=== PATIENT | male | born 1950 | race Caucasian/White ===

== ENCOUNTER 2016-02-23 10:24 | Outpatient (CLI) | payer OTHER ==
[~2016-02-23] VITALS: Ht 172.7 cm; Wt 71.4 kg
[~2016-02-23 10:24] MED LIST: LINA5TAB PO
[2016-02-23 10:47] VITALS: BP 133/77; PULSE 70; RESP 18; Ht 172.7 cm; Wt 71.4 kg
--- NOTE | 2016-02-23 12:13 | PN ---
Date/Time of Note Date/Time of Note DATE: 02/23/16 TIME: 12:02 Assessment/Plan Assessment/Plan Assessment/Plan [facility] Outpatient Progress Note Date of Service: 02/23/2016 Today's assessment and plan: A very-pleasant 65-year-old gentleman with past medical history significant for diabetes mellitus, with multifocal hepatocellular carcinoma involving segments 5-8 with possible lesions in segment 4B and 3 as shown on diagnostic laparoscopy with intraop US and liver biopsy on 10/14/15. S/p TACE 11/10/15 to right lobe of the liver. Follow up scan shows good response to treatment. May need repeat TACE to left lobe of liver due to likely multifocal nature of the disease. With above assessment, I've recommended the followin. TACE to L lobe of liver 2. Multidisciplinary discussion 3. If no obvious lesion in left lateral segments, to consider right portal vein embolization in preparation for a possible extended right hepatectomy 4. AFP check Thank you very much for having me involved in the care of this very pleasant gentleman and his wonderful family. I will continue to follow him along with you as an outpatient and will be available to answer any questions at area code [phone]. TOTAL VISIT TIME: 30 minutes of which more than half was spent in [id number] discussion with the patient, discussions with his , as well as coordination of care between multiple physicians and providers. Disclaimer: Inadvertent spelling and grammatical errors are likely due to EHR/ dictation software use and do not reflect on the quality of delivered patient care. Also, please note that the electronic time recorded on this node does not necessarily reflect the actual time of the visit. Updated Clinical Summary: A very-pleasant 65-year-old gentleman with past medical history significant for diabetes mellitus, with multifocal hepatocellular carcinoma involving segments 5 -8 with possible lesions in segment 4B and 3 as shown on diagnostic laparoscopy with intraop US and liver biopsy on 10/14/15. S/p TACE 11/10/15 to right lobe of the liver. Follow up scan shows good response to treatment. Subjective: No major events or complaints; no abd sig pain; no n/v/d; no sob or cp; + flatus ; + BM and normal; + activity. Reports improvement in left-sided abdominal pain. Objective: Vitals: See below Exam: GENERAL: On exam, the patient was sitting up in a chair and appeared to be comfortable and in no acute distress. ABDOMEN: Soft, nontender and nondistended. Incisions c/d/i w/o obvious e/e/d/h. There are no peritoneal signs or guarding. SKIN: Skin appears to be pink and feels warm to touch. NEUROLOGIC: Patient is awake, alert, and follows commands appropriately. Exam/Review of Systems Vital Signs Vitals Vital Signs Date Time Temp Pulse Resp B/P Pulse Ox O2 Delivery O2 Flow Rate FiO2 02/23/16 10:47 98.0 70 18 133/77 96 Room Air CARMELA BORREGO M.D. Feb 23, 2016 12:13
== END 2016-02-23 16:52 | disposition home or self-care (01) ==
LOC: HPC 10:24
PROVIDERS: ATTEND Transplant Surgery
DX: C22.0 Liver cell carcinoma (principal); E11.9 Type 2 diabetes mellitus without complications
CPT/HCPCS: G0463

== ENCOUNTER 2016-03-15 09:59 | Outpatient (CLI) | payer OTHER ==
[~2016-03-15] VITALS: Ht 172.7 cm; Wt 74.5 kg
[2016-03-15 10:28] VITALS: BP 133/77; PULSE 75; RESP 18; Ht 172.7 cm; Wt 74.5 kg
--- NOTE | 2016-03-15 16:10 | PN ---
Date/Time of Note Date/Time of Note DATE: 03/15/16 TIME: 15:20 Assessment/Plan Assessment/Plan Assessment/Plan [facility] Outpatient Progress Note Date of Service: 03/15/2016 Today's assessment and plan: A very-pleasant 65-year-old gentleman with past medical history significant for diabetes mellitus, with multifocal hepatocellular carcinoma involving segments 5-8 with possible lesions in segment 4B and 3 as shown on diagnostic laparoscopy with intraop US and liver biopsy on 10/14/15. S/p TACE 11/10/15 to right lobe of the liver. Follow up scan shows good response to treatment. Scheduled for repeat TACE to left lobe of liver due to likely multifocal nature of the disease and possible consideration for right portal vein embolization to grow the left lobe depending on findings on L lobe TACE procedure. Patient and family had further questions regarding above plan and for this reason this visit was conducted. I insisted that patient attends the visit with a family member since in my opinion, patient may have difficulty remembering the details of the discussion. His was present during the visit and I answered all of their questions to the best of my ability. Patient and appeared to understand and agreed with the plans. With above assessment, I've recommended the followin. TACE to L lobe of liver 2. Multidisciplinary discussion 3. If no obvious lesion in left lateral segments, to consider right portal vein embolization in preparation for a possible extended right hepatectomy 4. AFP check Thank you very much for having me involved in the care of this very pleasant gentleman and his wonderful family. I will continue to follow him along with you as an outpatient and will be available to answer any questions at area code [phone]. TOTAL VISIT TIME: 30 minutes of which more than half was spent in [id number] discussion with the patient, discussions with his , as well as coordination of care between multiple physicians and providers. Disclaimer: Inadvertent spelling and grammatical errors are likely due to EHR/ dictation software use and do not reflect on the quality of delivered patient care. Also, please note that the electronic time recorded on this node does not necessarily reflect the actual time of the visit. Updated Clinical Summary: A very-pleasant 65-year-old gentleman with past medical history significant for diabetes mellitus, with multifocal hepatocellular carcinoma involving segments 5 -8 with possible lesions in segment 4B and 3 as shown on diagnostic laparoscopy with intraop US and liver biopsy on 10/14/15. S/p TACE 11/10/15 to right lobe of the liver. Follow up scan shows good response to treatment. Comorbidities: 1. Multifocal bilateral liver lesions in the setting of early cirrhosis; s/p laparoscopic exploration with intraoperative ultrasound of liver and laparoscopic ultrasound-guided core needle liver biopsy of segment 5 lesion as well as segment 4B normal cirrhotic-appearing liver 2. Diabetes mellitus Subjective: No major events or complaints; no abd sig pain; no n/v/d; no sob or cp; + flatus ; + BM and normal; + activity. Reports ongoing issues with mild left-sided abdominal pain. Objective: Vitals: See below Exam: GENERAL: On exam, the patient was sitting up in a chair and appeared to be comfortable and in no acute distress. ABDOMEN: Soft, nontender and nondistended. Incisions c/d/i w/o obvious e/e/d/h. There are no peritoneal signs or guarding. SKIN: Skin appears to be pink and feels warm to touch. NEUROLOGIC: Patient is awake, alert, and follows commands appropriately. Exam/Review of Systems Vital Signs Vitals Vital Signs Date Time Temp Pulse Resp B/P Pulse Ox O2 Delivery O2 Flow Rate FiO2 03/15/16 10:28 97.7 75 18 133/77 96 Room Air CARMELA BORREGO M.D. Mar 15, 2016 15:31
== END 2016-03-15 16:51 | disposition home or self-care (01) ==
LOC: HPC 09:59
PROVIDERS: ATTEND Transplant Surgery
DX: C22.0 Liver cell carcinoma (principal); E11.9 Type 2 diabetes mellitus without complications; K74.60 Unspecified cirrhosis of liver
CPT/HCPCS: G0463

== ENCOUNTER 2016-06-28 11:27 | Day surgery (SDC) | payer OTHER ==
[~2016-06-28] VITALS: Ht 175.3 cm; Wt 72.4 kg
[2016-06-28] MEDS ORDERED: janumet (12:19)
[2016-06-28] MEDS ORDERED: bentyl (12:19)
[2016-06-28] MEDS ORDERED: pantoprazole (12:19)
[2016-06-28] MEDS ORDERED: novolog (12:19)
[2016-06-28 12:21] VITALS: Ht 175.3 cm; Wt 72.4 kg
[2016-06-28] MEDS ORDERED: LIDOCAINE 2% (SDV) 5 ML INJ ONE (12:53)
[2016-06-28] MEDS ORDERED: MIDAZOLAM 1 MG/ML 2 ML INJ ONE (12:53)
[2016-06-28] MEDS ORDERED: PROPOFOL 40 ML ONE (12:53)
[2016-06-28 12:56] VITALS: BP 115/75; PULSE 69; RESP 18
--- NOTE | 2016-06-28 13:29 | GILP ---
DATE OF PROCEDURE: NAME OF PROCEDURE: Esophagogastroduodenoscopy. SURGEON: Reese Neely MD PREOPERATIVE DIAGNOSIS: Abdominal pain. POSTOPERATIVE DIAGNOSES: 1. 2+ esophageal varices at the lower end. 2. Gastritis with erosions. INDICATION FOR THE PROCEDURE: Mr. Sam Jeffery is a 66-year-old male patient who had upper abdomina l pain, not responding to therapy. The patient had history of hepatoma. The patient was scheduled for endoscopic examination for further evaluation. The procedure and possible complications are well explained to the patient, he understood and consen sandra to the procedure. DESCRIPTION OF PROCEDURE: Under the influence of anesthesia, the gastroscope was carefully introduc ed into the esophagus and under direct vision, it was advanced to the stomach and through the pyloru s into the duodenal bulb and descending duodenum. FINDINGS: ESOPHAGUS: The patient had 2+ esophageal varices in the lower end of the esophagus. STOMACH: He had gastritis with erosions. DUODENUM: Normal. He tolerated the procedure very well and there was no complication from the procedure. At the end o f the procedure, he was awake with stable vital signs and he was discharged home to the care of his family. IMPRESSION: 1. 2+ esophageal varices at the lower end of the esophagus. 2. Gastritis with erosions. PLAN: 1. Pantoprazole 40 mg p.o. q.a.m. 2. Bentyl 10 mg p.o. t.i.d. p.r.n. for pain. Dictated By: REESE REID/ISRRAEL Conf#: [id number] DID#: [id number]
[2016-06-28 13:32] VITALS: BP 115/78; PULSE 63; RESP 20
--- NOTE | 2016-06-29 07:29 | CONS ---
DATE OF ADMISSION: 06/28/2016 DATE OF CONSULTATION: TYPE OF CONSULTATION: Preoperative Gastroenterology Dear Dr. Vazquez, I thank you very much for this kind referral. HISTORY OF PRESENT ILLNESS: Mr. Sam Jeffery is a 66-year-old male patient who has been referred to me for further evaluation of upper abdominal pain, not responding to therapy with pantoprazole and Bentyl. There is no past history of peptic ulcer disease. He is not taking any nonsteroidal anti-i nflammatory agents. His appetite has been good and there is no history of significant weight loss. The patient had an abdominal CT scan done and he was noted to have hepatoma and gallstones. He is being followed up by Dr. Hinojosa for the hepatoma. He does not have any right upper quadrant pain, f ever, chills, or jaundice. The patient had a colonoscopy 1 year ago and he was noted to have divert iculosis of the colon. There is no history of colon neoplasm. He is not hypertensive. He has diab etes. There is no history of heart disease or lung problem. There is no history of kidney disease. SOCIAL HISTORY: He is a nonsmoker. He used to drink alcohol, now he has quit drinking. FAMILY HISTORY: There is no family history of gastrointestinal tract neoplasm. ALLERGIES: THERE IS NO HISTORY OF SIGNIFICANT DRUG ALLERGY. MEDICATIONS: 1. Janumet. 2. Novolin insulin. 3. Pantoprazole. 4. Bentyl. PHYSICAL EXAMINATION: GENERAL: He is 5 feet 9 inches tall and he weighs 160 pounds. HEART: Examination of the heart reveals normal first and second heart sounds. LUNGS: Clear. ABDOMEN: Soft without any distention. Liver and spleen are not palpable. There are no masses. Th ere is no focal tenderness. Normal bowel sounds are heard. CENTRAL NERVOUS SYSTEM: Does not reveal any focal neurological deficit. IMPRESSION: 1. Upper abdominal pain, not responding to therapy with pantoprazole and Bentyl. 2. Hepatoma. 3. He is being followed by Dr. Hinojosa. 4. Gallstones. 5. The patient seemed to be asymptomatic from gallstones. 6. The patient had a colonoscopy 1 [address] done by Dr. Camp and he was noted to have diverticulo sis of the colon. 7. Diabetes mellitus. PLAN: 1. Continue pantoprazole. 2. Bentyl p.r.n. for abdominal pain. 3. Endoscopy for further evaluation. The patient had abdominal CT scan and he was noted to have gallstones and hepatoma. There was no ot her abnormality detected. Because of the multiple medical problems, he needs monitored anesthesia care for the procedure. The procedure and possible complications were well explained to the patient. He understands and con sents to the procedure. I thank you once again. With warmest personal regards, Dictated By: ANGY REID/ISRRAEL Conf#: [id number] DID#: [id number] CC: ANGY DOHERTY MD;*EndCC*
== END 2016-06-28 16:18 | disposition home or self-care (01) ==
LOC: GIL 11:27
PROVIDERS: ATTEND Internal Medicine Gastroenterology
DX: I85.00 Esophageal varices without bleeding (principal); K29.70 Gastritis, unspecified, without bleeding; K80.20 Calculus of gallbladder without cholecystitis without obstruction; E11.9 Type 2 diabetes mellitus without complications; Z79.4 Long term (current) use of insulin
CPT/HCPCS: 43235; J2250; Z7610

== ENCOUNTER 2016-07-12 21:36 | Emergency (ER) | payer OTHER ==
[~2016-07-12] VITALS: Ht 177.8 cm; Wt 75.0 kg
[~2016-07-12 21:36] MED LIST changes: -LINA5TAB PO; +bentyl; +janumet; +novolog; +pantoprazole
[2016-07-12 21:41] VITALS: Ht 177.8 cm; Wt 75.0 kg
[2016-07-12] MEDS ORDERED: ONDANSETRON 4 MG INJ IV STA ×2 (22:01→23:26)
[2016-07-12] MEDS ORDERED: morphine 4 MG/ML VIAL IV STA ×2 (22:01→23:26)
[2016-07-12] MEDS ORDERED: SOD CHLORIDE 0.9% 500 ML IV STA (22:01)
--- NOTE | 2016-07-12 22:05 | ERD ---
ER Documentation Chief Complaint Date/Time DATE: 07/12/16 TIME: 22:02 Chief Complaint left sided abd pain radaitibg to back, hx- CA liver taking chemotherapy HPI 66-year-old male history of hepatocellular carcinoma in the past with chemotherapy and embolization treatment who presents with 1 year of left upper quadrant abdominal pain. The patient states that the pain has been persistent over the past year and states that "no one has been looking at his spleen "he denies any hematemesis or melena, no fevers or chills. He recently had endoscopy that showed esophageal varices and gastritis but no evidence of acute process. Patient denies any chest pain or pleuritic pain, no shortness of breath. It is unclear what triggered his visit this evening other than persistence of pain. ROS All systems reviewed and are negative except as per history of present illness. Medications Home Meds Active Scripts Docusate Sodium* (Colace*) 100 Mg Capsule, 100 MG PO TID Y for CONSTIPATION, # 30 CAP Prov:GEORGES NOVOA MD 07/13/16 Ondansetron (Ondansetron Odt) 4 Mg Tab.rapdis, 4 MG PO Q6H Y for NAUSEA AND/OR VOMITING, #30 TAB Prov:GEORGES NOVOA MD 07/13/16 Hydrocodone/Acetaminophen ([place] 10-325 Tablet) 1 Each Tablet, 1 TAB PO Q6H Y for PAIN, #7 TAB Prov:GEORGES NOVOA MD 07/13/16 Reported Medications [Salvestrol] No Conflict Check, 2 CAP PO TID 07/13/16 Pantoprazole* (Pantoprazole*) 40 Mg Tablet.dr, 40 MG PO BID, TAB 07/13/16 Dicyclomine Hcl* (Bentyl*) 10 Mg Capsule, 20 MG PO TID, CAP 07/13/16 Insulin Aspart* (Novolog Insulin Pen*) 100 Unit/Ml Soln, 14 SC WITH LUNCH, EA 07/13/16 Sitagliptin Phos/Metformin HCl (Janumet 50-500 mg Tablet) 1 Each Tablet, 1 EACH PO QAM AND PM, TAB 07/13/16 Discontinued Reported Medications [pantoprazole] No Conflict Check 06/28/16 [bentyl] No Conflict Check 06/28/16 [novolog] No Conflict Check 06/28/16 [janumet] No Conflict Check 06/28/16 Allergies Allergies: Coded Allergies: No Known Drug Allergies (Unverified Allergy, Unknown, 07/12/16) PMhx/Soc History of Surgery: Yes Anesthesia Reaction: No Hx Neurological Disorder: No Hx Respiratory Disorders: No Hx Cardiac Disorders: No Hx Psychiatric Problems: No Hx Miscellaneous Medical Probl: No (biopsy, liver cancer, diabetes) Hx Alcohol Use: No Hx Substance Use: No Hx Tobacco Use: No Smoking Status: Never smoker FmHx Family History: No diabetes Physical Exam Vitals Vital Signs Date Time Temp Pulse Resp B/P Pulse Ox O2 Delivery O2 Flow Rate FiO2 07/13/16 00:07 64 16 144/86 100 Room Air 07/12/16 21:41 98.7 65 20 145/73 99 Physical Exam General: Well developed, well nourished, no acute distress Head: Normocephalic, atraumatic. Eyes: Pupils equally reactive, EOM intact ENT: Moist mucous membranes Neck: Supple, no lymphadenopathy Respiratory: Lungs clear bilaterally, no distress Cardiovascular: RRR, no murmurs, rubs, or gallops Abdominal: Soft, non-tender, non-distended, no peritoneal signs, negative Ceja sign, no tenderness to McBurney's point, no pulsatile mass : Deferred MSK: No edema, no unilateral swelling, 5/5 strength Neurologic: Alert and oriented, moving all extremities, normal speech, no focal weakness, no cerebellar signs Skin: No rash Psych: Normal mood Result Diagram: 07/12/16 2212 07/12/16 2212 Results 24 hrs Laboratory Tests Test 07/12/16 22:12 White Blood Count 4.610^3/ul Red Blood Count 4.5010^6/ul Hemoglobin 13.7g/dl Hematocrit 40.6% Mean Corpuscular Volume 90.2fl Mean Corpuscular Hemoglobin 30.4pg Mean Corpuscular Hemoglobin Concent 33.7g/dl Red Cell Distribution Width 13.4% Platelet Count 8610^3/UL Mean Platelet Volume 11.7fl Neutrophils % 77.9% Lymphocytes % 13.7% Monocytes % 5.7% Eosinophils % 1.1% Basophils % 0.9% Nucleated Red Blood Cells % 0.0/100WBC Neutrophils # 3.610^3/ul Lymphocytes # 0.610^3/ul Monocytes # 0.310^3/ul Eosinophils # 0.110^3/ul Basophils # 0.010^3/ul Nucleated Red Blood Cells # 0.010^3/ul Prothrombin Time 12.7Sec Prothrombin Time Ratio 1.0 INR International Normalized Ratio 0.95 Activated Partial Thromboplast Time 29.8Sec Sodium Level 134mmol/L Potassium Level 3.3mmol/L Chloride Level 104mmol/L Carbon Dioxide Level 23mmol/L Anion Gap 10 Blood Urea Nitrogen 15mg/dl Creatinine 0.63mg/dl Glucose Level 225mg/dl Calcium Level 9.9mg/dl Total Bilirubin 0.5mg/dl Direct Bilirubin 0.00mg/dl Indirect Bilirubin 0.5mg/dl Aspartate Amino Transf (AST/SGOT) 49IU/L Alanine Aminotransferase (ALT/SGPT) 58IU/L Alkaline Phosphatase 251IU/L Total Protein 8.3g/dl Albumin 4.6g/dl Globulin 3.70g/dl Albumin/Globulin Ratio 1.24 Lipase 51U/L Current Medications Medications (Trade) Dose Ordered Sig/Gualberto Route PRN Reason Start Time Stop Time Status Last Admin Dose Admin Sodium Chloride (NS) 500 ml @ 500 mls/hr Q1H STAT IV 07/12/16 22:01 07/12/16 23:00 DC 07/12/16 22:10 Morphine Sulfate (morphine) 4 mg ONCE STAT IV 07/12/16 22:01 07/12/16 22:02 DC 07/12/16 22:12 Ondansetron HCl (Zofran Inj) 4 mg ONCE STAT IV 07/12/16 22:01 07/12/16 22:02 DC 07/12/16 22:12 Morphine Sulfate (morphine) 4 mg ONCE STAT IV 07/12/16 23:26 07/12/16 23:27 DC 07/12/16 23:35 Ondansetron HCl (Zofran Inj) 4 mg ONCE STAT IV 07/12/16 23:26 07/12/16 23:27 DC 07/12/16 23:35 Procedures/MDM EKG, MONITORS, & DIAGNOSTIC IMAGING: CT abdomen and pelvis. IMPRESSION: 1. Ill-defined ovoid density right lobe of the liver not well visualized on this noncontrast examination corresponding to the previously identified hepatic mass which appears to have increased in volume in the interval. 2. Cholelithiasis. 3. Left renal cyst. 4. Solitary ascending colon diverticula without surrounding inflammatory changes. 5. Mild retained stool without obstruction. 6. No CT evidence for appendicitis. 7. Mild splenomegaly. 8. Minimal right inguinal hernia containing fat. 9. Vascular calcifications. LAB INTERPRETATION: No significant leukocytosis or hepatobiliary obstruction MEDICAL DECISION MAKING: The patient has 1 year of left upper quadrant abdominal pain in the setting of hepatocellular carcinoma. Unclear significance of the abdominal pain. This does not appear to be consistent with upper GI bleed. No signs or symptoms concerning for acute aortic process given the chronicity of these symptoms. Low concern for kidney stone. Could consider metastatic spread. It appears the patient is seeking an answer for the pain for 1 year. I tried to explain to the patient that we may not have an answer in the emergency department given the chronicity of the symptoms. However, I will rule out acute process with laboratory testing and CT imaging of the abdomen and pelvis. I can initiate the patient on stronger pain medication refer him to his primary care provider and oncologic surgeon Dr. Hinojosa. Family member assisting interpretation. ER COURSE: Patient given IV fluids and morphine. The patient required repeat dosing. Serial abdominal exam is improved. Diagnostic imaging is unrevealing. The patient has been referred to primary care physician for further management of his chronic pain. I kept the patient and/or family informed of laboratory and diagnostic imaging results throughout the emergency room course. DISPOSITION PLAN: We discussed follow up with the patient's primary care doctor within 24 to 48 hours as needed. We also discussed return to the emergency room for worsening symptoms or worsening condition. Outpatient referral: [None required] Discharge Medications: [place], Zofran, Colace We discussed the use of narcotics including avoidance of operating heavy machinery and driving as well as its addictive properties. Departure Diagnosis: Primary Impression: Abdominal pain Abdominal location: left upper quadrant Qualified Code: R10.12 - Left upper quadrant pain Additional Impression: History of hepatocellular carcinoma Condition: Stable GEORGES NOVOA MD July 12, 2016 22:05
[2016-07-12 23:04] LABS: ADD SCAN DIFF NO
[2016-07-12 23:09] LABS: ABNORMAL IP MESSAGE 1; BASOPHILS % 0.9 % (0.0-2.0); EOSINOPHILS # 0.1 10^3/ul (0.0-0.5); EOSINOPHILS % 1.1 % (0.0-7.0); HEMATOCRIT 40.6 % (42.0-52.0); HEMOGLOBIN 13.7 g/dl (14.0-18.0); LYMPHOCYTES # 0.6 10^3/ul (0.8-2.9); LYMPHOCYTES % 13.7 % (15.0-51.0); MEAN CORPUSCULAR HEMOGLOBIN 30.4 pg (29.0-33.0); MEAN CORPUSCULAR HGB CONC 33.7 g/dl (32.0-37.0); MEAN CORPUSCULAR VOLUME 90.2 fl (82.0-101.0); MEAN PLATELET VOLUME 11.7 fl (7.4-10.4); MONOCYTE # 0.3 10^3/ul (0.3-0.9); MONOCYTES % 5.7 % (0.0-11.0); NEUTROPHIL # 3.6 10^3/ul (1.6-7.5); NEUTROPHILS % 77.9 % (39.0-77.0); PLATELET COUNT 86 10^3/UL (140-415); RED CELL DISTRIBUTION WIDTH 13.4 % (11.5-14.5); WHITE BLOOD COUNT 4.6 10^3/ul (4.8-10.8)
--- NOTE | 2016-07-12 23:21 | RADRPT ---
PROCEDURE: CT ABDOMEN/PELVIS WITHOUT CONTRAST CLINICAL INDICATION: 66-year-old male with abdominal pain. The patient has a history of hepatic c ancer. TECHNIQUE: The study was performed utilizing a GE LightSpeed VCT 64-slice CT scanner. Direct axia l sections were obtained through the abdomen and pelvis without the use of intravenous contrast mate rial. Sagittal and coronal reformations were obtained. One or more of the following dose reduction t echniques were utilized: automated exposure control, adjustment of the mA and/or kV according to pat ient's size or use of iterative reconstruction technique. [facility] CTD/vol = 12.8 mGy; Total Exam DLP = 773.9 mGy-cm. COMPARISON: CT abdomen/pelvis August 05, 2015. FINDINGS: The lung bases are unremarkable. There is no evidence for significant pleural effusion. The liver has a normal size. There is an ill-defined ovoid heterogeneous density within the right lobe of the liver measuring approximately 6.6 x 5.4 cm corresponding to the previously identified mass on the c ontrast examination but not well visualized on the current study. This appears to have increased in volume in the interval. No intrahepatic nor extrahepatic biliary ductal dilatation is seen. The gal lbladder contains multiple the calcified gallstones but without significant wall thickening or peric holecystic fluid. The pancreas is without areas of abnormal attenuation. The spleen is enlarged hav ing a maximal length of 14.7 cm but without abnormal density. The adrenal glands are unremarkable. T he right kidney is without abnormal density, calculi or obstruction. There is a left lower pole german al cyst measuring approximately 3.3 x 3.5 x 3.5 cm. No hydroureteronephrosis nor nephroureterolithiasis is evident. The urinary bladder contains urine. There is mild retained stool within the colon without obstruction. There is a small solitary deep diverticula within the mesente jose border of the distal ascending colon without surrounding inflammatory changes. The appendix is d iminutive and is without abnormal thickening or surrounding inflammatory reaction. There is no signi ficant free fluid. The prostate is not enlarged. There is a minimal right inguinal hernia containin g fat. The aortoiliac vessels are mildly calcified without aneurysmal dilatation. The osseous struct ures are intact. IMPRESSION: 1. Ill-defined ovoid density right lobe of the liver not well visualized on this noncontrast examin ation corresponding to the previously identified hepatic mass which appears to have increased in vol ume in the interval. 2. Cholelithiasis. 3. Left renal cyst. 4. Solitary ascending colon diverticula without surrounding inflammatory changes. 5. Mild retained stool without obstruction. 6. No CT evidence for appendicitis. 7. Mild splenomegaly. 8. Minimal right inguinal hernia containing fat. 9. Vascular calcifications. .Valente Russo MD, Date Time Electronically viewed and signed by .Valente Russo MD, on 07/12/2016 23:20 .M/
[2016-07-12 23:28] LABS: INR 0.95; PROTIME 12.7 Sec (12.2-14.2)
[2016-07-12 23:29] LABS: PARTIAL THROMBOPLASTIN TIME 29.8 Sec (25.0-35.0)
[2016-07-12 23:32] LABS: ALBUMIN 4.6 g/dl (3.3-4.9); ALBUMIN/GLOBULIN RATIO 1.24; BILIRUBIN,INDIRECT 0.5 mg/dl (0-1.1); BILIRUBIN,TOTAL 0.5 mg/dl (0.2-1.3); CALCIUM 9.9 mg/dl (8.4-10.2); CREATININE 0.63 mg/dl (0.61-1.24); POTASSIUM 3.3 mmol/L (3.5-5.1); TOTAL PROTEIN 8.3 g/dl (6.1-8.1)
[2016-07-13] MEDS ORDERED: PANT40TA4 PO
[2016-07-13] MEDS ORDERED: [UNRECOGNIZED DRUG - OTHER] PO
[2016-07-13] MEDS ORDERED: SITA1TAB PO
[2016-07-13] MEDS ORDERED: DICY10CA60 PO
[2016-07-13] MEDS ORDERED: NOVO3I SC
[2016-07-13 00:07] VITALS: BP 144/86; PULSE 64; RESP 16
[2016-07-13] MEDS ORDERED: DOCU-144 PO (00:25)
[2016-07-13] MEDS ORDERED: ONDA4TAB14 PO (00:25)
[2016-07-13] MEDS ORDERED: HYDR-902 PO (00:25)
== END 2016-07-13 00:32 | disposition home or self-care (01) ==
LOC: E/R 21:36
DX: R10.12 Left upper quadrant pain (principal); E11.9 Type 2 diabetes mellitus without complications; Z79.4 Long term (current) use of insulin; Z85.05 Personal history of malignant neoplasm of liver
CPT/HCPCS: 36415; 74176; 80053; 83690; 85025; 85610; 85730; 96374; 96375; 96376; J2270; J2405; J7040; Z7502

== ENCOUNTER 2016-07-26 11:27 | Outpatient (CLI) | payer OTHER ==
[~2016-07-26] VITALS: Ht 172.7 cm; Wt 79.5 kg
[2016-07-26 11:27] VITALS: BP 119/71; PULSE 80; RESP 18; Ht 172.7 cm; Wt 79.5 kg
[~2016-07-26 11:27] MED LIST changes: +DICY10CA60 PO; +DOCU-144 PO; +HYDR-902 PO; +NOVO3I SC; +ONDA4TAB14 PO; +PANT40TA4 PO; +SITA1TAB PO; +[UNRECOGNIZED DRUG - OTHER] PO; -bentyl; -janumet; -novolog; -pantoprazole
--- NOTE | 2016-07-26 16:45 | PN ---
Date/Time of Note Date/Time of Note DATE: 07/26/16 TIME: 16:17 Assessment/Plan Assessment/Plan Assessment/Plan [facility] Outpatient Progress Note Date of Service: 07/26/2016 Today's assessment and plan: Overall has remained stable with HCC in segment V , s/p 2 prior TACE procedures Oct 2015 and Mar 2016, with most recent liver- dedicated CT abd/pelvis 06/05/16 showing stable in size similar enhancing lesion in seg 5. No new lesions in approximately 9 months form time of his operation. This indicates adequate local control of disease in segment V, and likely regenerative nodules in the rest of the liver as opposed to multifocal HCC as originally thought. Patient may become eligible for another attempt at liver resection if remains stable for another 3 months. Repeat TACE is advised. Explained above to patient and answered all of his questions. He seemed to understand and agreed with the plans. With above assessment, I've recommended the followin. Repeat TACE to segment 5 lesion 2. Multidisciplinary discussion 3. If no obvious lesion in the rest of the liver on the repeat TACE and on f/u CT in 2-3 months, to consider repeat surgical attempt at resection +/- right portal vein embolization in preparation for a possible extended right hepatectomy if needed 4. Repeat AFP levels 5. F/u on transplant evaluation outcomes/status Thank you very much for having me involved in the care of this very pleasant gentleman and his wonderful family. I will continue to follow him along with you as an outpatient and will be available to answer any questions at area code [phone]. TOTAL VISIT TIME: 30 minutes of which more than half was spent in [id number] discussion with the patient, discussions with his , as well as coordination of care between multiple physicians and providers. Disclaimer: Inadvertent spelling and grammatical errors are likely due to EHR/ dictation software use and do not reflect on the quality of delivered patient care. Also, please note that the electronic time recorded on this node does not necessarily reflect the actual time of the visit. Updated Clinical Summary: A very-pleasant 66-year-old gentleman with past medical history significant for diabetes mellitus, with multifocal hepatocellular carcinoma involving segments 5 -8 with possible lesions in segment 4B and 3 as shown on diagnostic laparoscopy with intraop US and liver biopsy on 10/14/15. S/p TACE 11/10/15 to right lobe of the liver. Follow up scan showed good response to treatment. S/p repeat TACE 03/22 ([facility]). F/u liver-dedicated CT 06/05/16 showed segment V neoplasm with persistent tumoral enhancement, unchanged in size (3.8 cm). Comorbidities: 1. Multifocal bilateral liver lesions in the setting of early cirrhosis; s/p laparoscopic exploration with intraoperative ultrasound of liver and laparoscopic ultrasound-guided core needle liver biopsy of segment 5 lesion as well as segment 4B normal cirrhotic-appearing liver 2. Diabetes mellitus 3. S/p TACE 11/10/15 to right lobe of the liver. Follow up scan showed good response to treatment. S/p repeat TACE 03/22/16 ([facility]). F/u liver-dedicated CT 06/05/16 showed segment V neoplasm with persistent tumoral enhancement, unchanged in size (3.8 cm). Subjective: No major events or complaints; no abd sig pain; no n/v/d; no sob or cp; + flatus ; + BM and normal; + activity. Objective: Vitals: See below Exam: GENERAL: On exam, the patient was sitting up in a chair and appeared to be comfortable and in no acute distress. ABDOMEN: Soft, nontender and nondistended. Incisions c/d/i w/o obvious e/e/d/h. There are no peritoneal signs or guarding. SKIN: Skin appears to be pink and feels warm to touch. NEUROLOGIC: Patient is awake, alert, and follows commands appropriately. Exam/Review of Systems Vital Signs Vitals Vital Signs Date Time Temp Pulse Resp B/P Pulse Ox O2 Delivery O2 Flow Rate FiO2 07/26/16 11:27 98.0 80 18 119/71 95 Room Air CARMELA BORREGO M.D. Jul 26, 2016 16:45
== END 2016-07-26 16:43 | disposition home or self-care (01) ==
LOC: HPC 11:27
PROVIDERS: ATTEND Transplant Surgery
DX: C22.0 Liver cell carcinoma (principal); E11.9 Type 2 diabetes mellitus without complications
CPT/HCPCS: G0463

== ENCOUNTER 2016-12-25 09:56 | Outpatient (CLI) | payer OTHER ==
[~2016-12-25] VITALS: Ht 172.7 cm; Wt 71.8 kg
[2016-12-25 09:30] VITALS: BP 139/73; PULSE 62; RESP 18; Ht 172.7 cm; Wt 71.8 kg
[~2016-12-25 09:56] MED LIST changes: -DOCU-144 PO; -HYDR-902 PO; -ONDA4TAB14 PO
--- NOTE | 2016-12-25 10:15 | PN ---
Date/Time of Note Date/Time of Note DATE: 12/25/16 TIME: 10:11 Assessment/Plan Assessment/Plan Assessment/Plan [facility] Out[facility] Progress Note Date of Service: 12/25/2016 Today's assessment and plan: Overall has remained stable clinically with HCC in segment V, s/p 3 prior TACE procedures Oct 2015, Mar 2016, and August 2016, with most recent liver-dedicated CT abd/pelvis December 2016 showing increase in size of lesion in seg 5, and relatively vague but new abnormalities seen in segment 2 and 3 of the liver concerning for progression of disease. With current information, the patient is not going to benefit from surgical resection. I also do not believe that the patient's liver is healthy enough to undergo a trisegmentectomy which is what will be needed to remove all of the known areas of concern for malignancy. Repeat TACE is advised. Transplant evaluation should also be performed. I also discussed the option of oncology consultation and consideration for systemic chemotherapy, but the patient is fairly set on not wanting systemic chemotherapy as part of his treatment plan. Explained above to patient (no family present) and answered all of his questions. He seemed to understand and agreed with the plans. With above assessment, I've recommended the followin. Repeat TACE to segment 5 lesion, with possible need for administration of TACE to the left lobe of the liver in addition 2. Multidisciplinary discussion 3. Transplant evaluation 4. Repeat AFP levels Thank you very much for having me involved in the care of this very pleasant gentleman and his wonderful family. I will continue to follow him along with you as an outpatient and will be available to answer any questions at area code [phone]. Disclaimer: Inadvertent spelling and grammatical errors are likely due to EHR/ dictation software use and do not reflect on the quality of delivered patient care. Also, please note that the electronic time recorded on this node does not necessarily reflect the actual time of the visit. Updated Clinical Summary: A very-pleasant 66-year-old gentleman with past medical history significant for diabetes mellitus, with multifocal hepatocellular carcinoma involving segments 5 -8 with possible lesions in segment 4B and 3 as shown on diagnostic laparoscopy with intraop US and liver biopsy on 10/14/15. S/p TACE 11/10/15 to right lobe of the liver. Follow up scan showed good response to treatment. S/p repeat TACE 03/22 (Dr. Thorne[facility]). F/u liver-dedicated CT 06/05/16 showed segment V neoplasm with persistent tumoral enhancement, unchanged in size (3.8 cm). CT abd/pelvis wo/w Dr. Edgar Granger: Cirrhotic liver with splenomegaly, LI-RADS 5 lesion right lobe of liver with sig increase in size 8.1 cm ( previously 3.8 cm). New area of enhancement L lobe of liver without washout and also new mild focal dilatation of the intrahepatic biliary ducts in the left lobe. Comorbidities: 1. Multifocal bilateral liver lesions in the setting of early cirrhosis; s/p laparoscopic exploration with intraoperative ultrasound of liver and laparoscopic ultrasound-guided core needle liver biopsy of segment 5 lesion as well as segment 4B normal cirrhotic-appearing liver 2. Diabetes mellitus 3. S/p TACE 11/10/15 to right lobe of the liver. Follow up scan showed good response to treatment. 4. S/p repeat TACE 03/22/16 (Dr. Thorne, [facility]) to the left lobe of liver. F/u liver-dedicated CT 06/05/16 showed segment V neoplasm with persistent tumoral enhancement, unchanged in size (3.8 cm). 4. S/p TACE 09/06/16 [facility] (Eddie Thorne MD) R hepatic artery embolization with Doxorubicin loaded beads Subjective: No major events or complaints since last visit; no sig abd pain; no n/v/d; no sob or cp; + flatus; + BM and normal; + activity. Weight fairly stable. Objective: Vitals: See below Exam: GENERAL: On exam, the patient was sitting up in a chair and appeared to be comfortable and in no acute distress. ABDOMEN: Soft, nontender and nondistended. Incisions c/d/i w/o obvious e/e/d/h. There are no peritoneal signs or guarding. SKIN: Skin appears to be pink and feels warm to touch. NEUROLOGIC: Patient is awake, alert, and follows commands appropriately. Exam/Review of Systems Vital Signs Vitals Vital Signs Date Time Temp Pulse Resp B/P Pulse Ox O2 Delivery O2 Flow Rate FiO2 12/25/16 09:30 97.8 62 18 139/73 96 Room Air CARMELA BORREGO M.D. Dec 25, 2016 10:15
== END 2016-12-25 17:00 | disposition home or self-care (01) ==
LOC: HPC 09:56
PROVIDERS: ATTEND Transplant Surgery
DX: C22.0 Liver cell carcinoma (principal); E11.9 Type 2 diabetes mellitus without complications; Z98.890 Other specified postprocedural states
CPT/HCPCS: G0463